=== PATIENT | male | born 1990 | race Caucasian/White ===

== ENCOUNTER → 2021-07-28 13:04 | Outpatient (CLI) | payer OTHER, SELFPAY ==
--- NOTE | ~2021-07-28 | CT_ITS ---
EXAMINATION: CT sinus wo con DATE: 07/28/2021 13:19 INDICATION: Chronic sinusitis TECHNIQUE: Computed tomography (CT) of the paranasal sinuses was performed without intravenous contra st. The dose-length product was 284.43 mGy-cm. Automated exposure control and iterative reconstructio n technique were employed. COMPARISON: None FINDINGS: There is mild mucosal thickening of the maxillary and ethmoid sinuses. No air-fluid levels. No significant mucoperiosteal reaction. Right ostiomeatal unit is patent. Left ostiomeatal unit is o ccluded. Mastoids are pneumatized. IMPRESSION: 1. Mild sinus disease with occlusion of the left ostiomeatal unit. Reviewed, dictated and finalized at location A. REL [employer]
== END ==
PROVIDERS: Visit Provider Otolaryngology
DX: J32.9 Chronic sinusitis, unspecified (principal)
CPT/HCPCS: 70486